=== PATIENT | female | born 1965 | race Caucasian/White ===

== ENCOUNTER 2017-03-18 03:05 | Emergency (ER) | payer OTHER ==
[~2017-03-18] VITALS: Ht 162.6 cm; Wt 110.8 kg
[~2017-03-18 03:05] MED LIST: BACTRIM,SEPT1 TABLET PO; CYMBALTA60 MG PO; Cymbalta PO; LATUDA20 MG PO; Levaquin PO; PRILOSEC40 MG PO
[2017-03-18 03:25] LABS: HEMATOCRIT 42.1 % (36.0-46.0); MCH 28.5 PG (29.0-34.0); MCHC 33.3 G/DL (30.0-36.0); MCV 85.6 FL (83-99); PLATELET COUNT 247 K/uL (156-360); RBC DIS.WIDTH-CV 13.1 % (11.8-14.6); RBC DIS.WIDTH-SD 41.1 % (39-53); RED BLOOD COUNT 4.92 M/uL (3.80-5.20); WHITE BLOOD COUNT 10.9 K/uL (4.1-10.2)
[2017-03-18 03:33] LABS: CHLORIDE 106 mEq/L (99-109); POTASSIUM 3.8 mEq/L (3.7-5.4); SODIUM 139 mEq/L (136-147)
[2017-03-18 03:34] LABS: GLUCOSE 120 mg/dL (70-99)
[2017-03-18 03:38] LABS: CREATININE 0.8 mg/dL (0.6-1.3); GFR ESTIMATE (CALCULATED) > 59 mL/min/
[2017-03-18 03:39] LABS: UREA NITROGEN (BUN) 5 mg/dL (9-23)
[2017-03-18 03:45] LABS: TROP-I INTERPRETATION NEGATIVE; TROPONIN-I < 0.01 ng/mL (0.0-0.30)
[2017-03-18] MEDS ORDERED: ALBUTEROL2.5 MG/3 M IH (05:43)
[2017-03-18] MEDS ORDERED: ZITHROMAX Z-PA250 MG PO (05:43)
[2017-03-18] MEDS ORDERED: NEBULIZER MC (05:43)
[2017-03-18] MEDS ORDERED: MUCINEX DM ER1 EACH PO (05:43)
[2017-03-18] MEDS ORDERED: PREDNISONE20 MG PO (05:43)
[2017-03-18] MEDS ORDERED: PROVENTIL HFA6.7 GM IH (05:43)
[2017-03-18 05:58] VITALS: BP 136/75
== END 2017-03-18 06:00 | disposition home or self-care (01) ==
LOC: EME → EDBD 03:05 → EME 03:05
PROVIDERS: Emergency Medicine
DX: J44.0 Chronic obstructive pulmonary disease with (acute) lower respiratory infection (principal); J20.9 Acute bronchitis, unspecified; J44.1 Chronic obstructive pulmonary disease with (acute) exacerbation; E78.5 Hyperlipidemia, unspecified; L40.9 Psoriasis, unspecified; F32.9 Major depressive disorder, single episode, unspecified; F41.9 Anxiety disorder, unspecified; F31.9 Bipolar disorder, unspecified; F20.9 Schizophrenia, unspecified; F17.200 Nicotine dependence, unspecified, uncomplicated; Z85.43 Personal history of malignant neoplasm of ovary; Z88.6 Allergy status to analgesic agent; Z88.5 Allergy status to narcotic agent
CPT/HCPCS: 71046; 80048; 84484; 85027; 87502; 93005; 94640; 99281; 99284; J2930; J7644

== ENCOUNTER 2017-10-08 22:02 | Observation (INO) | payer OTHER ==
[~2017-10-08] VITALS: Ht 162.6 cm; Wt 106.0 kg
[~2017-10-08 22:02] MED LIST changes: +ALBUTEROL2.5 MG/3 M IH; +MUCINEX DM ER1 EACH PO; +NEBULIZER MC; +PREDNISONE20 MG PO; +PROVENTIL HFA6.7 GM IH; +ZITHROMAX Z-PA250 MG PO
[2017-10-08 23:20] LABS: BASOPHIL (%) 0.5 % (0-1); BASOPHIL COUNT 0.1 K/uL (0-0.1); EOSINOPHIL (%) 2.1 % (0-5); EOSINOPHIL COUNT 0.3 K/uL (0-0.3); HEMATOCRIT 43.8 % (36.0-46.0); HEMOGLOBIN 14.9 G/DL (11.9-15.5); IMMATURE GRANULOCYTE (%) 0.5 % (0.0-0.7); LYMPHOCYTE (%) 16.3 % (15-42); MCH 28.9 PG (29.0-34.0); MCV 84.9 FL (83-99); MONOCYTE (%) 6.1 % (3-12); MONOCYTE COUNT 0.8 K/uL (0-0.8); NEUTROPHIL (%) 74.5 % (45-76); NEUTROPHIL COUNT 9.2 K/uL (1.8-6.4); PLATELET COUNT 251 K/uL (156-360); RBC DIS.WIDTH-SD 40.2 % (39-53); RED BLOOD COUNT 5.16 M/uL (3.80-5.20); WHITE BLOOD COUNT 12.4 K/uL (4.1-10.2)
[2017-10-08 23:31] LABS: CHLORIDE 106 mEq/L (99-109); POTASSIUM 3.5 mEq/L (3.7-5.4); SODIUM 143 mEq/L (136-147)
[2017-10-08 23:32] LABS: GLUCOSE 113 mg/dL (70-99)
[2017-10-08 23:36] LABS: CREATININE 0.7 mg/dL (0.6-1.3); GFR ESTIMATE (CALCULATED) > 59 mL/min/
[2017-10-08 23:37] LABS: UREA NITROGEN (BUN) 8 mg/dL (9-23)
[2017-10-08 23:41] LABS: TROP-I INTERPRETATION NEGATIVE; TROPONIN-I < 0.01 ng/mL (0.0-0.30)
[2017-10-09] MEDS ORDERED: HUMIRA40 MG/0.1 SC (01:14)
[2017-10-09] MEDS ORDERED: GABAPENTIN300 MG PO (01:15)
[2017-10-09 05:49] LABS: D-DIMER ELISA < 150.00 ng/mLDDU (<230)
[2017-10-09 06:01] LABS: TROP-I INTERPRETATION NEGATIVE; TROPONIN-I < 0.01 ng/mL (0.0-0.30)
[2017-10-09 06:17] LABS: HDL CHOLESTEROL 42 MG/DL (Desirable>=50); LDL CHOLESTEROL 163 mg/dL (Desirable<100); NON-HDL CHOLESTEROL 190 mg/dL (Desirable<160); TOTAL CHOLESTEROL 232 mg/dL (Desirable<200); TRIGLYCERIDES 137 MG/DL (Normal: <150)
[2017-10-09 06:40] VITALS: BP 146/72
[2017-10-09 10:45] LABS: HEMOGLOBIN A1c (GLYCOHEMOGLOB) 5.6 % (Below 5.7)
== END 2017-10-09 07:27 | disposition left against medical advice (07) ==
LOC: EME → EDBD 22:02 → EDOF 10-09 04:45 → ENRESERV 10-09 04:52 → CANRESERV 10-09 05:18 → EDOF 10-09 07:27
PROVIDERS: Emergency Medicine; Hospitalist
DX: H66.90 Otitis media, unspecified, unspecified ear (principal); H53.8 Other visual disturbances; R94.31 Abnormal electrocardiogram [ECG] [EKG]; R11.0 Nausea; L40.9 Psoriasis, unspecified; Z85.43 Personal history of malignant neoplasm of ovary; F41.9 Anxiety disorder, unspecified; F31.9 Bipolar disorder, unspecified; R26.89 Other abnormalities of gait and mobility; M06.9 Rheumatoid arthritis, unspecified; F17.200 Nicotine dependence, unspecified, uncomplicated; J44.9 Chronic obstructive pulmonary disease, unspecified; Z86.718 Personal history of other venous thrombosis and embolism; Z98.890 Other specified postprocedural states; Z88.5 Allergy status to narcotic agent; Z88.6 Allergy status to analgesic agent
CPT/HCPCS: 70450; 80048; 80061; 81003; 83036; 84484; 85025; 85379; 93005; 99281; 99285; G0378; J1100; J1200; J2765; J7030